=== PATIENT | male | born 1960 | race Caucasian/White ===

== ENCOUNTER 2016-09-10 20:47 | Observation (INO) | payer OTHER ==
[~2016-09-10] VITALS: Ht 172.7 cm; Wt 90.1 kg
[~2016-09-10 20:47] MED LIST: ASPI81TA28 PO; ATOR-22 PO; CLOP1TAB15 PO; FOLI1TAB7 PO; FRS/40 PO; HYG/25 PO; POTA20TA16 PO; PRED-301 PO; THIA100T13 PO; TPRSR/25 PO
[2016-09-10] MEDS ORDERED: METH500T37 PO (21:03)
[2016-09-10] MEDS ORDERED: MAGN400T6 PO (21:03)
[2016-09-10] MEDS ORDERED: ATOR-26 PO (21:03)
[2016-09-10] MEDS ORDERED: ASPIRIN 81 MG CHEW PO STA (21:51)
[2016-09-10] MEDS ORDERED: NITROGLYCERIN OINT 2% 1GM PACKET EXT STA (21:51)
[2016-09-10] MEDS ORDERED: ACETAMINOPHEN 500 MG TAB PO STA (21:51)
--- NOTE | 2016-09-10 21:55 | DIAGNOSTIC IMAGING REPORT ---
SINGLE VIEW CHEST CLINICAL HISTORY: Atypical chest pain. FINDINGS: An AP, portable, upright chest radiograph is compared to study dated 06/05/2016. Correlation is made with chest CT dated 05/14/2015. The examination is degraded by portable technique, large body habitus, and patient rotation. The patient is status post midline sternotomy. The heart is top normal in size and there is atherosclerotic calcification of the thoracic aorta. The pulmonary vasculature is noncongested. Chronic interstitial thickening and mild elevation of left hemidiaphragm are unchanged. No airspace consolidation or pleural effusion is seen. No pneumothorax is identified. The skeletal structures appear osteopenic. The bony thorax is grossly intact. Degenerative change and scoliosis are noted in the thoracic spine. IMPRESSION: No acute cardiopulmonary abnormality. Electronically signed by: Cayetano Ramos M.D. 09/10/2016 9:54 PM Dictated Date/Time: 09/10/2016 9:53 PM
[2016-09-10] MEDS ORDERED: NITROGLYCERIN OINT 2% 1GM PACKET ONE (21:58)
--- NOTE | 2016-09-10 21:58 | EMERGENCY ROOM VISIT NOTE ---
History Report prepared by Wilian: Fritz Melo Under the Supervision of: Dr. Rah Jhaveri M.D. First contact with patient: 20:52 Chief Complaint: CHEST PAIN Stated Complaint: CHEST PAIN Nursing Triage Summary: Patient arrived to [facility] via ALS from home. Patient states "I had pain in my left arm for most of the day today. About 3 hours ago, I developed pain in the left side of my chest. I have a CoreValve (aortic - replaced in 2015) and have had a CABG before. I have lupus and take lasix for fluid retention." Patient was given Aspirin 324mg PO and Nitro 3 tabs SL in route to the ED. Patient reports his pain is improving; initially 01/06, now 10/07. Patient reports a history of HTN and cirrhosis. History of Present Illness The patient is a 56 year old male who presents to the Emergency Room with complaints of chest pain that began today. The patient's pain has now resolved due to en ROUTE Nitroglycerin in EMS. The patient has a history of a cardiac bypass surgery and heart valve replacements. He was at his mother's playing a board game when his symptoms began. He called the EMS to be transported to the ED. He was also experiencing arm pain. He does not take Coumadin or Nitroglycerin regularly. He currently has a headache and left sided flank pain. He denies any other symptoms. Source of History: patient Onset: today Position: chest Symptom Intensity: minimal Quality: sharp Timing: resolved Associated Symptoms: + back pain, + headache Note: He denies all other symptoms. Review of Systems See HPI for pertinent positives & negatives. A total of 10 systems reviewed and were otherwise negative. Past Medical & Surgical Medical Problems: (1) Alcoholic liver damage (2) Appendectomy (3) Benign hypertension (4) Bronchitis (5) CAD (coronary artery disease) (6) Constricting chest pain often radiating down left arm (7) Contusion of right hip (8) Coronary artery bypass grafting (9) Hyperlipidemia (10) lupus (11) Lupus (12) Replacement of aortic valve Family History Patient reports no known family medical history. Social History Smoking Status: Former Smoker Alcohol Use: occasionally Drug Use: none Marital Status: single Housing Status: lives with family Occupation Status: unemployed, disabled Current/Historical Medications Scheduled Aspirin (Aspirin Ec), 81 MG PO QAM Chlorthalidone (Hygroton), 25 MG PO QAM Clopidogrel (Plavix), 75 MG PO QAM Furosemide (Lasix), 40 MG PO QAM Magnesium Oxide (Mag-Ox), 400 MG PO QAM Methocarbamol (Robaxin), 500 MG PO TID Metoprolol Succinate (Metoprolol Succinate ER), 25 MG PO QAM Potassium Ext Rel (Klor-Con), 20 MEQ PO BID Prednisone (Prednisone), 5 MG PO QAM Allergies Coded Allergies: Codeine (Verified Adverse Reaction, Mild, NERVOUS, 09/10/16) Physical Exam Vital Signs Date Time Temp Pulse Resp B/P Pulse Ox O2 Delivery O2 Flow Rate FiO2 09/10/16 23:50 76 16 120/81 97 Room Air 09/10/16 23:05 72 20 122/80 98 Room Air 09/10/16 22:32 73 18 122/70 94 Room Air 09/10/16 22:06 77 20 122/73 94 Room Air 09/10/16 21:18 80 09/10/16 20:50 93 Room Air 09/10/16 20:50 93 Room Air 09/10/16 20:50 37.0 86 20 132/77 93 Room Air Physical Exam GENERAL: Patient is a healthy-appearing well-nourished HEAD: Normocephalic atraumatic EYES: Ocular movements intact pupils equal and react to light OROPHARYNX mucous membranes are moist no exudates present no erythema or edema present NECK: Supple no nuchal rigidity CHEST: Good equal expansion LUNGS: Clear and equal to auscultation CARDIAC: Normal S1 and S2. 3/6 systolic murmur. ABDOMEN: Soft nontender no guarding BACK: No CVA tenderness EXTREMITIES: No pain upon palpation normal muscle strength in all groups no clubbing cyanosis or edema NEURO: Patient is following commands is answering questions appropriately. Alert and oriented x3 Cranial Nerves 2-12 grossly intact Medical Decision & Procedures ER Provider Diagnostic Interpretation: Radiology results as stated below per my review and radiologist interpretation: SINGLE VIEW CHEST CLINICAL HISTORY: Atypical chest pain. FINDINGS: An AP, portable, upright chest radiograph is compared to study dated 06/05/2016. Correlation is made with chest CT dated 05/14/2015. The examination is degraded by portable technique, large body habitus, and patient rotation. The patient is status post midline sternotomy. The heart is top normal in size and there is atherosclerotic calcification of the thoracic aorta. The pulmonary vasculature is noncongested. Chronic interstitial thickening and mild elevation of left hemidiaphragm are unchanged. No airspace consolidation or pleural effusion is seen. No pneumothorax is identified. The skeletal structures appear osteopenic. The bony thorax is grossly intact. Degenerative change and scoliosis are noted in the thoracic spine. IMPRESSION: No acute cardiopulmonary abnormality. Electronically signed by: Cayetano Ramos M.D. 09/10/2016 9:54 PM Dictated Date/Time: 09/10/2016 9:53 PM ULTRASOUND KIDNEYS AND BLADDER CLINICAL HISTORY: Left flank pain. COMPARISON STUDY: Abdominal CT dated 04/25/2014. TECHNIQUE: Real-time, grayscale, and color flow sonography of the kidneys and bladder is performed. Images are reviewed in the transverse and longitudinal planes. FINDINGS: Kidneys: The kidneys are normal in size and echotexture. The right kidney measures 11.2 x 5.3 x 5.1 cm and the left kidney measures 11.5 x 6.9 x 4.6 cm. There is no hydronephrosis. No shadowing renal calculi are identified. There is no sonographic evidence of contour deforming renal mass lesion. No perinephric fluid is identified. Bladder: The bladder is normal in appearance. Bilateral ureteral jets were seen. IMPRESSION: Unremarkable sonographic assessment of the kidneys and bladder. Electronically signed by: Cayetano Ramos M.D. 09/10/2016 10:57 PM Dictated Date/Time: 09/10/2016 10:56 PM Laboratory Results 09/10/16 20:15 09/10/16 20:15 Test 09/10/16 20:15 Red Blood Count 4.65 M/uL (4.7-6.1) Mean Corpuscular Volume 85.6 fL (80-100) Mean Corpuscular Hemoglobin 30.5 pg (25-34) Mean Corpuscular Hemoglobin Concent 35.7 g/dl (32-36) RDW Standard Deviation 38.4 fL (36.4-46.3) RDW Coefficient of Variation 12.3 % (11.5-14.5) Mean Platelet Volume 12.8 fL (7.4-10.4) Prothrombin Time 11.0 SECONDS (9.0-12.0) Prothromb Time International Ratio 1.0 (0.9-1.1) Activated Partial Thromboplast Time 25.5 SECONDS (21.0-31.0) Partial Thromboplastin Ratio 1.0 Anion Gap 9.0 mmol/L (3-11) Est Creatinine Clear Calc Drug Dose 103.3 ml/min Estimated GFR () 111.6 Estimated GFR (Non- 96.3 BUN/Creatinine Ratio 21.0 (10-20) Calcium Level 8.7 mg/dl (8.5-10.1) Total Bilirubin 0.7 mg/dl (0.2-1) Aspartate Amino Transf (AST/SGOT) 61 U/L (15-37) Alanine Aminotransferase (ALT/SGPT) 67 U/L (12-78) Alkaline Phosphatase 114 U/L (45-117) Total Creatine Kinase 92 U/L (39-308) Creatine Kinase MB 2.4 ng/ml (0.5-3.6) Creatine Kinase MB Ratio 2.6 (0-3.0) Total Protein 8.3 gm/dl (6.4-8.2) Albumin 3.8 gm/dl (3.4-5.0) Globulin 4.5 gm/dl (2.5-4.0) Albumin/Globulin Ratio 0.8 (0.9-2) Chemistry Specimen Hemolysis Labs reviewed by ED physician. Medications Administered Medications (Trade) Dose Ordered Sig/Delfino Route Start Time Stop Time Status Last Admin Dose Admin Nitroglycerin (Nitroglycerin 2% Oint) 1 inch NOW STAT EXT 09/10/16 21:51 09/10/16 21:52 DC 09/10/16 22:03 1 INCH Acetaminophen (Tylenol Tab) 1,000 mg NOW STAT PO 09/10/16 21:51 09/10/16 21:52 DC 09/10/16 22:03 1,000 MG Potassium Chloride 10 meq 10 meq NOW STAT IV 09/10/16 22:18 09/10/16 22:19 DC 09/10/16 23:09 10 MEQ Potassium Chloride/Prmx (Kcl 10 Meq / Wtr/Premixed Water) 100 ml @ 100 mls/hr NOW STAT IV 09/10/16 22:18 09/10/16 23:17 DC 09/11/16 00:03 100 MLS/HR Potassium Chloride (Klor-Con M10) 40 meq NOW STAT PO 09/10/16 22:18 09/10/16 22:20 DC 09/10/16 23:09 40 MEQ Potassium Chloride (Klor-Con M10) 40 meq NOW STAT PO 09/10/16 22:18 09/10/16 22:20 DC 09/10/16 23:10 40 MEQ Ondansetron HCl (Zofran Inj) 4 mg NOW STAT IV 09/10/16 22:18 09/10/16 22:20 DC 09/10/16 23:09 4 MG Morphine Sulfate (MoRPHine SULFATE INJ) 8 mg NOW STAT IV 09/10/16 23:42 09/10/16 23:44 DC 09/10/16 23:48 8 MG ECG Indication: chest pain Rate (beats per minute): 85 Rhythm: normal sinus Findings: no acute ischemic change, prolonged QT, no ectopy Comparison ECG Date: Change: Second ECG in ED: NSR 72 prolonged QT, no ectopy, no acute ischemic changes. ED Course 2051: Past medical records reviewed. The patient was evaluated in room C3. A complete history and physical examination was performed. 2151: Acetaminophen 1000 mg PO, Nitroglycerin 1 inch EXT, Aspirin 324 mg PO 215: Nitroglycerin 1 inch .ROUTE 2218: Zofran Inj 4 mg IV, Potassium Chloride 40 meq PO, Potassium Chloride 40 meq PO, Potassium Chloride 10 meq/ Prmx 100 ml @ 100 mls/hr, Potassium Chloride 10 meq IV 2252: Potassium Chloride 20 meq IV, Potassium Chloride 80 meq .ROUTE 2340: Upon reexamination the patient is resting. I discussed results and treatment plan with the patient. He verbalizes agreement and understanding. I spoke with Dr. Cosme from the [facility] Hospitalist Service. The patient will be evaluated for further management. Medical Decision Differential diagnosis: Etiologies such as cardiac ischemia, aortic dissection, pulmonary embolism, pneumonia, pneumothorax, musculoskeletal, infections, pericarditis, myocarditis , esophageal rupture, gastrointestinal, as well as others were entertained. This is a 56-year-old male who presents emergency department complaining of chest pain. The patient's chest pain was relieved by nitroglycerin. The patient has a exceedingly low potassium and is on Lasix for the potassium. He has a history of CABG. The patient's potassium was repleted in the emergency department. He was sent for an ultrasound of his kidneys as the patient has a history of lupus and is concerned about kidneys along with left-sided flank pain. Ultrasound is normal. I did discuss the case with the hospitalist service who agreed to admit the patient for cardiac rule out. Patient was in agreement with the treatment plan. Consults Time Called: 2329 Consulting Physician: Dr. Ba AGUIRRE Hospitalist Returned Call: [phone] He will be evaluating the patient for further management. Impression Primary Impression: Precordial chest pain Scribe Attestation The scribe's documentation has been prepared under my direction and personally reviewed by me in its entirety. I confirm that the note above accurately reflects all work, treatment, procedures, and medical decision making performed by me. Departure Information Dispostion Being Evaluated By Hospitalist Prescriptions Potassium Ext Rel (Klor-Con) 20 Meq Tabcr 20 MEQ PO BID, #60 2 Refills Prov: Urban Moody MD 09/11/16 Referrals Sin Boudreaux M.D. (PCP) Patient Instructions My [facility]
[2016-09-10 22:14] LABS: CALCIUM 8.7 mg/dl (8.5-10.1); CREATININE 0.86 mg/dl (0.60-1.40); POTASSIUM 2.9 mmol/L (3.5-5.1)
[2016-09-10 22:17] LABS: ALB/GLOB RATIO 0.8 (0.9-2); CKMB/CK RATIO 2.6 (0-3.0)
[2016-09-10] MEDS ORDERED: POTASSIUM CHLORIDE 10 MEQ TABCR PO STA ×2 (22:18)
[2016-09-10] MEDS ORDERED: POTASSIUM CHLORIDE 10 MEQ / 100ML WTR IV STA (22:18)
[2016-09-10] MEDS ORDERED: POTASSIUM CHLR 10 MEQ / WTR 10 MEQ in PREMIXED WATER 100 ML IV STA (22:18)
[2016-09-10] MEDS ORDERED: ONDANSETRON INJ 2 MG/ML 2 ML VIAL IV STA (22:18)
[2016-09-10 22:39] LABS: HEMATOCRIT 39.8 % (42-52); MEAN CELL VOLUME 85.6 fL (80-100); MEAN CORPUSCULAR HEMOGLOBIN 30.5 pg (25-34); MEAN CORPUSCULAR HGB CONC 35.7 g/dl (32-36); MEAN PLATELET VOLUME 12.8 fL (7.4-10.4); PLATELET COUNT 130 K/uL (130-400); RED BLOOD COUNT 4.65 M/uL (4.7-6.1); WHITE BLOOD COUNT 6.49 K/uL (4.8-10.8)
[2016-09-10] MEDS ORDERED: POTASSIUM CHLORIDE 10 MEQ TABCR ONE (22:52)
[2016-09-10] MEDS ORDERED: POTASSIUM CHLORIDE 10 MEQ / 100ML WTR IV ONE (22:52)
--- NOTE | 2016-09-10 22:59 | DIAGNOSTIC IMAGING REPORT ---
ULTRASOUND KIDNEYS AND BLADDER CLINICAL HISTORY: Left flank pain. COMPARISON STUDY: Abdominal CT dated 04/25/2014. TECHNIQUE: Real-time, grayscale, and color flow sonography of the kidneys and bladder is performed. Images are reviewed in the transverse and longitudinal planes. FINDINGS: Kidneys: The kidneys are normal in size and echotexture. The right kidney measures 11.2 x 5.3 x 5.1 cm and the left kidney measures 11.5 x 6.9 x 4.6 cm. There is no hydronephrosis. No shadowing renal calculi are identified. There is no sonographic evidence of contour deforming renal mass lesion. No perinephric fluid is identified. Bladder: The bladder is normal in appearance. Bilateral ureteral jets were seen. IMPRESSION: Unremarkable sonographic assessment of the kidneys and bladder. Electronically signed by: Cayetano Ramos M.D. 09/10/2016 10:57 PM Dictated Date/Time: 09/10/2016 10:56 PM
[2016-09-10] MEDS ORDERED: MoRPHine SULFATE 10 MG/ML CARP/VIAL IV STA (23:42)
[2016-09-11] VITALS (9 sets, daily range): BP systolic 115–129; BP diastolic 74–83; PULSE 59–73; TEMP 36.4–36.8; O2SAT 92–98; Ht 172.7 cm; Wt 90.1 kg
[2016-09-11] MEDS ORDERED: ACETAMINOPHEN 325 MG TAB PO PRN
[2016-09-11] MEDS ORDERED: POLYETHYLENE (MIRALAX) 17 GM PACK PO PRN
[2016-09-11] MEDS ORDERED: MoRPHine SULFATE 2 MG/ML CARP IV PRN
[2016-09-11] MEDS ORDERED: ALUMINUM/MAGNESIUM/SIMETH (MAALOX MAX) 30 ML UDC PO PRN
[2016-09-11] MEDS ORDERED: ONDANSETRON INJ 2 MG/ML 2 ML VIAL IV PRN
[2016-09-11] MEDS ORDERED: MAGNESIUM HYDROXIDE SUSP 30 ML UDC PO PRN
[2016-09-11] MEDS ORDERED: NITROGLYCERIN 0.4 MG SL PER TAB CHARGE SL PRN
[2016-09-11] MEDS ORDERED: IV FLUIDS COMPLETED PRN (00:15)
[2016-09-11] MEDS ORDERED: MAGNESIUM SULFATE 1GM / D5W 1 GM in PREMIXED IN D5W 100 ML IV SCH (01:30)
--- NOTE | 2016-09-11 01:53 | HISTORY & PHYSICAL EXAMINATION ---
DATE OF ADMISSION: 09/11/2016 REASON FOR ADMISSION: Chest pain. HISTORY OF PRESENT ILLNESS: This is a 56-year-old male with a medical history of diffuse severe CAD, SLE, aortic valve replacement with revision. The patient developed central chest pain earlier in the day which radiated to his left arm and was followed by a generalized headache. He denies any nausea, vomiting, diaphoresis, lightheadedness or fevers. He denies any shortness of breath. On arrival to the hospital, he was administered several doses of morphine and NTG which eventually served to relieve his chest pain. Initial EKG is unchanged, initial troponin is negative. The patient did have cardiac catheterization in 02/2016, which showed diffuse severe [place] artery disease. He also had severe aortic stenosis of a bioprosthesis at that time. In 05/2016, he had a CoreValve revision of the bioprosthesis. PAST MEDICAL HISTORY: 1. SLE. He takes 5 mg of prednisone daily only for this. 2. CAD. Two-vessel bypass in 2008, cardiac catheterization in 02/2016 with diffuse severe disease. 3. Aortic valve replacement in 2009. The patient developed severe stenosis in the bioprosthesis and had a CoreValve replacement procedure in 05/2016. 4. Previous history of alcoholic liver disease which the patient denies. 5. Hyperlipidemia. 6. Hypertension. 7. History of rib fractures. 8. Chronic gait instability. 9. History of hydrocephalus as a child. 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 11. Grade 2 diastolic dysfunction. An echocardiogram in 2015 showed an ejection fraction of 60% with no wall motion abnormalities and severe aortic stenosis. CURRENT MEDICATIONS: Include the followin. Chlorthalidone 25 mg a.m. 2. Aspirin 81 mg a.m. 3. Plavix 75 mg a.m. 4. Lasix 40 mg a.m. 5. Magnesium oxide 400 mg a.m. 6. Robaxin 500 mg t.i.d. 7. Toprol-XL 25 mg a.m. 8. Potassium chloride 20 mEq a.m. 9. Prednisone 5 mg a.m. SOCIAL HISTORY: The patient does not smoke cigarettes. He states he drinks in moderation. Previous records indicate excess use, the patient denies this, and we cannot confirm otherwise. FAMILY HISTORY: Positive for CAD and hypertension. REVIEW OF SYSTEMS: A 14-point review of systems was performed and is negative aside from what is listed in the HPI. PHYSICAL EXAMINATION: VITAL SIGNS: Blood pressure is 120/81, heart rate 76, respirations 20, temperature 37, satting at 97% on room air. GENERAL: This is a slightly overweight middle-aged male. He is awake, alert, oriented x3, in no distress. HEAD AND NECK: No JVD, bruits, thrush or icterus. HEART: S1, 2. There is a loud systolic murmur. LUNGS: Clear to auscultation bilaterally. ABDOMEN: Nontender, nondistended. Bowel sounds present. EXTREMITIES: No clubbing, cyanosis or edema, with positive pulses. NEUROLOGIC: He is ambulatory, maintains his coordination, does not exhibit any focal deficits. SKIN: Negative for rashes or ulcers. LABORATORY DATA: WBC 6.4, hemoglobin 14.2, platelets 130. Sodium 138, potassium 2.9, chloride 94, CO2 of 35, BUN 18, creatinine 0.86 and glucose 89. INR is 1. EKG: Sinus rhythm, normal axis. There is borderline QT prolongation and no significant morphological change from previous. ASSESSMENT AND PLAN: This is a 56-year-old male with a history of severe coronary artery disease, aortic valve replacement with bioprosthesis, systemic lupus erythematosus, and grade 2 diastolic dysfunction. He presents with chest pain. Initial EKG is unchanged, initial troponin is negative. The patient does exhibit hypokalemia on initial labs. He will be admitted with the followin. Chest pain. We will admit to telemetry, obtain serial enzymes. Continue his aspirin, metoprolol and Plavix. PRESUMABLY, HE IS STATIN INTOLERANT as this does not feature on his medication list. We will treat chest pain with nitroglycerin or morphine p.r.n. If his troponin does increase, we will provide full dose anticoagulation and consult his cafeteria cook. 2. Hypokalemia. Potassium was replaced in the ER. We will provide magnesium in addition. 3. Systemic lupus erythematosus. He will continue 5 mg of prednisone daily. 4. Diastolic dysfunction. The patient will continue his daily Lasix. We have held chlorthalidone pending a.m. reevaluation as he is slightly dehydrated and has a low potassium. 5. Hypertension. Continue metoprolol. 6. Possible history of alcoholic liver disease. LFTs are improved compared to baseline. Total time for this admit including chart review, discussion with the ER physician, review of labs, imaging, EKG and extensive previous records 45 minutes. MTDD
[2016-09-11] MEDS: HEPARIN SOD 5000 UNIT/0.5 ML CARP SQ SCH ×2 (06:45→14:52)
[2016-09-11 08:19] LABS: POTASSIUM 3.2 mmol/L (3.5-5.1)
[2016-09-11] MEDS: METHOCARBAMOL 500 MG TAB PO SCH ×2 (08:30→14:51)
[2016-09-11] MEDS ORDERED: METOPROLOL SUCC 25MG EXT REL TAB PO SCH (09:00)
[2016-09-11] MEDS ORDERED: POTASSIUM CHLORIDE 20 MEQ TABCR PO SCH (09:00)
[2016-09-11] MEDS ORDERED: ASPIRIN 81 MG ECTAB PO SCH (09:00)
[2016-09-11] MEDS ORDERED: FUROSEMIDE 40 MG TAB PO SCH (09:00)
[2016-09-11] MEDS ORDERED: CLOPIDOGREL BISULFATE 75 MG TAB PO SCH (09:00)
[2016-09-11] MEDS ORDERED: MAGNESIUM OXIDE 400 MG TAB PO SCH (09:00)
[2016-09-11] MEDS ORDERED: POTASSIUM CHLORIDE 10 MEQ TABCR PO ONE (09:30)
--- NOTE | 2016-09-11 10:30 | Cardiology Consultation ---
Cardiology Consultation Date of Consultation: Sep 11, 2016. Attending Physician: Dr. Frida Amado Pt evaluation today including: conversation w/ patient, physical exam, chart review, lab review History of Present Illness Patient awoke with a headache and arm heaviness yesterday. Both symptoms were new but patient ignored them through out the day. He describes the headache as throbbing on the right parietal region, without photosensitivity or aura. The arm heaviness was not associated with numbness or tingling, nor did he feel that the pain was radiating down from the chest and patient was able to continue about his day, as per normal. He went to visit his mom, and walked the 2min back. He was able to climb the 1 flight of stairs up to his apartment without issue. It was only upon sitting down that he realized that he was feeling a chest pressure located centrally. He denies radiation into neck or back, but the left arm heaviness persisted. There was no associated nausea, vomiting or diaphoresis. Patient claims that there was some shortness of breath but says this is a long-standing symptom, which he believes is secondary to his lupus. He denies changes in symptoms with change in position or movement, and did not try any medication for relief at home. He waited approximately 2 hours before seeking medical attention. In the ED, his symptoms improved with morphine and NGT. Patient says he recovered from a cold a week ago, but no recent URI symptoms or fever. He says he is compliant with all of his medication and does not smoke and hasn't drank alcohol in a year. At baseline, patient admits that he does not exert himself much. On flat ground , he is able to ambulate independently without significant shortness of breath or any chest pain symptoms. Patient denies claudication, syncope or presyncopal episodes. He says he does have occasional episodes of chest pain, but these are limited in severity and self-resolve in minutes. He describes both orthopnea and PND, which are long standing and less of an issue when he sleeps angulated on his recliner. He does not use home oxygen. Family History Patient reports no known family medical history. CAD and HTN Social History Smoking Status: Former Smoker History of Alcohol Use: Yes Review of Systems Constitutional: No chills, No fever, No weakness Respiratory: + dyspnea on exertion, + shortness of breath, No cough, No dyspnea at rest Cardiac: + edema, + orthopnea, No chest pain, No palpitations Abdomen: + constipation, No GI bleeding, No nausea, No pain, No vomiting Male : No dysuria All Other Systems: Reviewed and Negative Allergies Coded Allergies: Codeine (Verified Adverse Reaction, Mild, NERVOUS, 09/10/16) Medications Current Inpatient Medications Medications (Trade) Dose Ordered Sig/Delfino Route Start Time Stop Time Status Last Admin Dose Admin Heparin Sodium (Porcine) (Heparin Sq 5000 Unit/0.5ml) 5,000 unit Q8 SQ 09/11/16 06:00 10/11/16 05:59 09/11/16 06:45 5,000 UNIT Acetaminophen (Tylenol Tab) 650 mg Q4H PRN PO 09/11/16 00:00 10/11/16 00:00 Al Hydrox/Mg Hydrox/Simethicone (Maalox Max Susp) 15 ml Q4H PRN PO 09/11/16 00:00 10/11/16 00:00 Magnesium Hydroxide (Milk Of Magnesia Susp) 30 ml Q12H PRN PO 09/11/16 00:00 10/11/16 00:00 Ondansetron HCl (Zofran Inj) 4 mg Q6H PRN IV 09/11/16 00:00 10/11/16 00:00 Nitroglycerin (Nitrostat Tab) 0.4 mg UD PRN SL 09/11/16 00:00 10/11/16 00:00 Morphine Sulfate (MoRPHine SULFATE INJ) 2 mg Q30M PRN IV 09/11/16 00:00 09/25/16 00:00 Polyethylene (Miralax Powder Packet) 17 gm DAILY PRN PO 09/11/16 00:00 10/11/16 00:00 Aspirin (Ecotrin Tab) 81 mg QAM PO 09/11/16 09:00 10/11/16 08:59 09/11/16 08:28 81 MG Clopidogrel Bisulfate (plAVix TAB) 75 mg QAM PO 09/11/16 09:00 10/11/16 08:59 09/11/16 08:30 75 MG Furosemide (Lasix Tab) 40 mg QAM PO 09/11/16 09:00 10/11/16 08:59 09/11/16 08:29 40 MG Magnesium Oxide (Mag-Ox Tab) 400 mg QAM PO 09/11/16 09:00 10/11/16 08:59 09/11/16 08:30 400 MG Methocarbamol (Robaxin Tab) 500 mg TID PO 09/11/16 09:00 10/11/16 08:59 09/11/16 08:30 500 MG Metoprolol Succinate (Toprol Xl Tab) 25 mg QAM PO 09/11/16 09:00 10/11/16 08:59 09/11/16 08:31 25 MG Potassium Chloride (Klor-Con Tab) 20 meq QAM PO 09/11/16 09:00 10/11/16 08:59 09/11/16 08:29 20 MEQ Prednisone (PredniSONE TAB) 5 mg QAM PO 09/11/16 09:00 10/11/16 08:59 09/11/16 08:30 5 MG Miscellaneous (Iv Fluids Completed) 1 ea PRN PRN N/A 09/11/16 00:15 09/11/17 00:14 Physical Exam Vital Signs Past 12 Hours Date Time Temp Pulse Resp B/P Pulse Ox O2 Delivery O2 Flow Rate FiO2 09/11/16 07:36 36.4 59 18 129/77 98 Room Air 09/11/16 04:08 36.7 70 18 124/83 94 Nasal Cannula 2.0 09/11/16 04:00 94 Nasal Cannula 2.0 09/11/16 01:36 36.8 73 18 128/77 93 Nasal Cannula 2.0 09/11/16 00:34 75 20 108/69 95 Room Air 09/10/16 23:50 76 16 120/81 97 Room Air 09/10/16 23:05 72 20 122/80 98 Room Air 09/10/16 22:32 73 18 122/70 94 Room Air 09/10/16 22:06 77 20 122/73 94 Room Air 09/10/16 21:18 80 Constitutional: General Apperance: heathly-appearing, well-nourished, well-developed Level of Distress: NAD Head: normocephalic, atraumatic ENMT: pharynx normal Neck: supple, FROM Lungs: Respiratory effort: no dyspnea, good air movement Auscultation: breath sounds normal, CTA except as noted, no wheezing, no rales/crackles Cardiovascular: Heart Auscultation: normal S1, normal S2, murmur (crescendo-decrescendo harsh systolic murmur), pertinent finding (JVP ~7-8mmH20) Peripheral Pulses: Bruits: none appreciated Carotid Pulse: normal on the left, normal on the right Radial Pulse: normal on the left, normal on the right Dorsalis Pedis Pulse: decreased on the left, decreased on the right Abdomen: Inspection & Palpation: soft, non-distended, no tenderness, guarding & rebound, no masses Extremities: no cyanosis, no varicosities, no ulcers, edema (Trace) Data Laboratory Results: Last 24 Hours Test 09/10/16 20:15 09/11/16 00:45 09/11/16 07:05 White Blood Count 6.49 K/uL Red Blood Count 4.65 M/uL Hemoglobin 14.2 g/dL Hematocrit 39.8 % Mean Corpuscular Volume 85.6 fL Mean Corpuscular Hemoglobin 30.5 pg Mean Corpuscular Hemoglobin Concent 35.7 g/dl RDW Standard Deviation 38.4 fL RDW Coefficient of Variation 12.3 % Platelet Count 130 K/uL Mean Platelet Volume 12.8 fL Prothrombin Time 11.0 SECONDS Prothromb Time International Ratio 1.0 Activated Partial Thromboplast Time 25.5 SECONDS Partial Thromboplastin Ratio 1.0 Sodium Level 138 mmol/L Potassium Level 2.9 mmol/L 3.2 mmol/L Chloride Level 94 mmol/L Carbon Dioxide Level 35 mmol/L Anion Gap 9.0 mmol/L Blood Urea Nitrogen 18 mg/dl Creatinine 0.86 mg/dl Est Creatinine Clear Calc Drug Dose 103.3 ml/min Estimated GFR () 111.6 Estimated GFR (Non- 96.3 BUN/Creatinine Ratio 21.0 Random Glucose 89 mg/dl Calcium Level 8.7 mg/dl Total Bilirubin 0.7 mg/dl Aspartate Amino Transf (AST/SGOT) 61 U/L Alanine Aminotransferase (ALT/SGPT) 67 U/L Alkaline Phosphatase 114 U/L Total Creatine Kinase 92 U/L Creatine Kinase MB 2.4 ng/ml Creatine Kinase MB Ratio 2.6 Troponin I 0.016 ng/ml 0.029 ng/ml 0.036 ng/ml Total Protein 8.3 gm/dl Albumin 3.8 gm/dl Globulin 4.5 gm/dl Albumin/Globulin Ratio 0.8 Chemistry Specimen Hemolysis Magnesium Level 2.0 mg/dl Imaging: EKG: Telemetry reviewed: Assessment & Plan 56 year old male with complex medical history with cardiac history significant for 2 vessel bypass in 2008, aortic valve replacement with bioprosthesis in 2009 , cardiac catheterization showing diffuse severe vessel disease in 02/2016, bioprosthesis stenosis s/p TAVR in 05/2016 admitted for chest pain rule out. ACS - Three sets of troponin within normal limits. - Continue aspirin 81mg qAM, clopidogrel 75mg qAM in view of recent TAVR procedure - Plan to perform echocardiography to assess cardiac and aortic valve function Dystolic dysfunction - Hydration status adequate, euvolemic - Continue furosemide 40mg qAM Hypertension - Blood pressures in acceptable range since admission - Continue home meds: chlorthalidone 25mg qAM, metoprolol succinate 25mg qAM, furosemide 40mg qAM Hyperlipidemia - Patient not on statin in hospital but claims he is on atorvastatin at home - As per outside records, atorvastatin 80mg restarted. Dispo - At this point, patient is stable with resolution of cardiac symptoms. If echo is within normal limits and patient remains asymptomatic, he would benefit from outpatient follow up in 4 weeks with potential nuclear imaging and/or stress testing in the future if recurrence of symptoms/ jail risk stratification warranted. Thank you for allowing us to participate in the care of this patient. We will continue to follow through out the admission. DR. AMADO ADDENDUM; Patient well known to me from outpatient setting and prior admissions. Was seen with resident and plan of care discussed. Agree with assessment as outlined by Dr. Dodson. Prior cardiac cath in february showed patent bypass grafts. Low suspicion that patient's current chest pain represents ACS or new high risk disease. Echo repeated to assess new Corevalve function and filling pressures. Valve well functioning without significant perivalvular leak. From a cardiac standpoint OK for discharge with plan for cardiology follow-up in 4 weeks. If recurrent pain will consider adding nitrate as an outpatient.
[2016-09-11] MEDS ORDERED: POTASSIUM CHLORIDE 20 MEQ TABCR PO STA (11:47)
--- NOTE | 2016-09-11 11:49 | Hospitalist Progress Note ---
Hospitalist Progress Note Date of Service Sep 11, 2016. (Aziza Victoria PA-C) Subjective Pt evaluation today including: conversation w/ patient, physical exam, chart review, lab review, review of studies, conversation w/ sales enablement consultant, review of inpatient medication list The patient currently denies any chest pain. His pain stopped after receiving nitroglycerin in the emergency department. Described it as a pressure-like sensation. Denies any cough or shortness of breath. No fever or chills. Denies heart palpitations or dizziness. Additional Comments: 6 system review negative. Please see pertinent positives in the history of present illness section. (Aziza Victoria PA-C) Objective Vital Signs Date Time Temp Pulse Resp B/P Pulse Ox O2 Delivery O2 Flow Rate FiO2 09/11/16 11:00 36.5 67 18 125/75 92 Room Air 09/11/16 08:00 95 Nasal Cannula 2.0 09/11/16 07:36 36.4 59 18 129/77 98 Room Air 09/11/16 04:08 36.7 70 18 124/83 94 Nasal Cannula 2.0 09/11/16 04:00 94 Nasal Cannula 2.0 09/11/16 01:36 36.8 73 18 128/77 93 Nasal Cannula 2.0 09/11/16 00:34 75 20 108/69 95 Room Air 09/10/16 23:50 76 16 120/81 97 Room Air 09/10/16 23:05 72 20 122/80 98 Room Air 09/10/16 22:32 73 18 122/70 94 Room Air 09/10/16 22:06 77 20 122/73 94 Room Air 09/10/16 21:18 80 09/10/16 20:50 93 Room Air 09/10/16 20:50 93 Room Air 09/10/16 20:50 37.0 86 20 132/77 93 Room Air (Aziza Victoria PA-C) Physical Exam General Appearance: no apparent distress Eyes: EOMI Neck: no JVD Respiratory/Chest: lungs clear Cardiovascular: regular rate, rhythm, + pertinent finding (gallop noted.) Abdomen: normal bowel sounds, non tender, soft Extremities: + pertinent finding (+1 nonpitting edema noted in the lower extremities without any erythema, tenderness or warmth appreciated.) Neurologic/Psychiatric: no motor/sensory deficits, oriented x 3 Skin: warm/dry (Aziza Victoria PA-C) Laboratory Results Last 24 Hours Test 09/10/16 20:15 09/11/16 00:45 09/11/16 07:05 White Blood Count 6.49 K/uL Red Blood Count 4.65 M/uL Hemoglobin 14.2 g/dL Hematocrit 39.8 % Mean Corpuscular Volume 85.6 fL Mean Corpuscular Hemoglobin 30.5 pg Mean Corpuscular Hemoglobin Concent 35.7 g/dl RDW Standard Deviation 38.4 fL RDW Coefficient of Variation 12.3 % Platelet Count 130 K/uL Mean Platelet Volume 12.8 fL Prothrombin Time 11.0 SECONDS Prothromb Time International Ratio 1.0 Activated Partial Thromboplast Time 25.5 SECONDS Partial Thromboplastin Ratio 1.0 Sodium Level 138 mmol/L Potassium Level 2.9 mmol/L 3.2 mmol/L Chloride Level 94 mmol/L Carbon Dioxide Level 35 mmol/L Anion Gap 9.0 mmol/L Blood Urea Nitrogen 18 mg/dl Creatinine 0.86 mg/dl Est Creatinine Clear Calc Drug Dose 103.3 ml/min Estimated GFR () 111.6 Estimated GFR (Non- 96.3 BUN/Creatinine Ratio 21.0 Random Glucose 89 mg/dl Calcium Level 8.7 mg/dl Total Bilirubin 0.7 mg/dl Aspartate Amino Transf (AST/SGOT) 61 U/L Alanine Aminotransferase (ALT/SGPT) 67 U/L Alkaline Phosphatase 114 U/L Total Creatine Kinase 92 U/L Creatine Kinase MB 2.4 ng/ml Creatine Kinase MB Ratio 2.6 Troponin I 0.016 ng/ml 0.029 ng/ml 0.036 ng/ml Total Protein 8.3 gm/dl Albumin 3.8 gm/dl Globulin 4.5 gm/dl Albumin/Globulin Ratio 0.8 Chemistry Specimen Hemolysis Magnesium Level 2.0 mg/dl (Aziza Victoria PA-C) Assessment and Plan 56-year-old male with a significant cardiac history, coronary artery disease, AVR status post AVR revision 06/14 presents to the emergency department with chest pressure. Now pain-free. Chest pain -Continue telemetry monitoring -Trend cardiac enzymes -Cardiology consult appreciated -Obtain echo -Repeat EKG Coronary artery disease if and noted to be severe on cardiac cath 03/15 -Continue medical management with aspirin 81 mg, Plavix 75 mg and metoprolol succinate 25 mg daily -Atorvastatin 80 mg daily restarted Diastolic dysfunction-no decompensation noted -Continue home dose of chlorthalidone and Lasix Hypokalemia-repeat potassium 3.2 -Given additional KCl po 60 mEq now SLE -Continue home dose of redness and 5 mg in the morning Cirrhosis-? Secondary to EtOH use. Patient denies -Stable DVT prophylaxis -Heparin 5000 units TID -TEDS, SCDs CODE STATUS -LEVEL I FULL CODE (Aziza Victoria, PA-C) Attending Attestation: pt seen/examined, chart reviewed, care plan d/w ANA Victoria. I agree w/ the valencia components of her documentation. I saw the patient after he had his echo; he was threatening to leave AMA if he "didn't get his test results fast." he denied any chest pain or sob during my visit (no chest pain since admission) tele stable/normal overnight VSS gen - agitated but NAD neck - no JVD heart - RRR, s1, s2, s4 vs opening snap, 3/6 systolic murmur heard all over chest lungs - CTA b/l abd - soft, NT ext - trace edema, pulses 2+ b/l Jazzy neg x 3 sets K 3.2 this am mag normal EKG - no ST changes, NSR; QTc prolonged A/P: Chest pain in patient with known, severe CAD. AVR in the past with revision of such in late 2016. Hypokalemia. QTc prolongation likely due to low K. Appreciate cardiology consult. Await echo. Replace K. Needs K supplementation at d/c due to double diuretic use at home. I highly encouraged patient NOT to sign out AMA prior to echo results returning. Enrique RIZVI MD (Urban Rizvi MD)
--- NOTE | 2016-09-11 17:41 | ECHOCARDIOGRAM REPORT ---
*NOTICE TO RECEIVING REPUBLICAN AGENCY This information is strictly Confidential and protected under [place] law. [place] law prohibits you from making any further disclosure of this information unless further disclosure is expressly permitted by the written consent of the person to whom it pertains or is authorized by law. A general authorization for the release of medical or other information is not sufficient for this purpose. Hospital accepts no responsibility if the information is made available to any other person, INCLUDING THE PATIENT. Interpretation Summary * Name: EILEEN TOBAR Study Date: 09/11/2016 11:39 AM BP: 125/75 mmHg * Patient Location: C.2T\S\S230\S\1 HR: 67 * : 1960 (M/d/yyyy) Gender: Male Height: 68 in * Age: 56 yrs Ethnicity: CA Weight: 198 lb * Ordering Physician: Maggie Dodson. * Performed By: Zina Murphy RDCS * * Reason For Study: Chest pain * BSA: 2.0 m2 * -- Conclusions -- * 1. Normal LV size. Mild concentric LVH * 2. Normal LV systolic function. LVEF 60-65%. No regional wall motion abnormalities. * 3. RV not well visualized. Borderline RV dysfunction. * 4. Post TAVR (Corevalve) with normal expected transvalvular gradients. No significant paravalvular leak. * 5. Severe mitral annular calcification. Mild mitral stenosis. Trace mitral regurgitation. * 6. Grade I diastolic dysfunction. * 7. Compared with prior study on 03/02/2016: Well-functioning TAVR is new. Procedure Details * A complete two-dimensional transthoracic echocardiogram was performed (2D, M-mode, Doppler and color flow Doppler). Left Ventricle * The left ventricle is grossly normal size. * There is mild concentric left ventricular hypertrophy. * Ejection Fraction = 60-65%. * No regional wall motion abnormalities noted. Right Ventricle * The right ventricle is not well visualized. * The right ventricular systolic function is mildly reduced. Atria * The left atrium is severely dilated. * The right atrium is mildly dilated. * There is no evidence of atrial septal defect, but resolution does not allow assessment for a patent foramen ovale. Mitral Valve * There is severe mitral annular calcification. * There is mild mitral stenosis. * There is trace mitral regurgitation. Tricuspid Valve * The tricuspid valve is not well visualized, but is grossly normal. * There is no tricuspid stenosis. * Significant tricuspid regurgitation is absent. Aortic Valve * There is a bioprosthetic aortic valve. * Post TAVR (Corevalve) with normal expected transvalvular gradients. No significant paravalvular regurgitation. Pulmonic Valve * The pulmonary valve is not well seen, but the Doppler examination is normal without significant regurgitation or stenosis. Great Vessels * The aortic root and proximal ascending aorta are normal sized. Pericardium/Pleural * There is no pericardial effusion. Great Vessels * Normal inferior vena cava size and collapsability with sniff indicates a normal right atrial pressure of 3 mmHg Left Ventricular Diastolic Function * Grade I diastolic dysfunction, (abnormal relaxation pattern). MMode 2D Measurements and Calculations IVSd 1.2 cm LVIDd 3.7 cm LVIDs 2.3 cm LVPWd 1.3 cm IVS/LVPW 0.90 FS 38.0 % EDV(Teich) 56.7 ml ESV(Teich) 17.5 ml EF(Teich) 69.1 % EDV(cubed) 49.1 ml ESV(cubed) 11.7 ml EF(cubed) 76.2 % LV mass(C)d 153.1 grams LV mass(C)dI 75.2 grams/m\S\2 SV(Teich) 39.2 ml SI(Teich) 19.3 ml/m\S\2 SV(cubed) 37.4 ml SI(cubed) 18.4 ml/m\S\2 asc Aorta Diam 3.2 cm LVAd ap4 20.7 cm\S\2 LVLd ap4 7.3 cm EDV(MOD-sp4) 49.0 ml EDV(sp4-el) 50.1 ml LVAs ap4 12.3 cm\S\2 LVLs ap4 6.5 cm ESV(MOD-sp4) 19.8 ml ESV(sp4-el) 19.7 ml EF(MOD-sp4) 59.6 % EF(sp4-el) 60.6 % LVAd ap2 26.5 cm\S\2 LVLd ap2 8.1 cm EDV(MOD-sp2) 71.5 ml EDV(sp2-el) 73.4 ml LVAs ap2 15.3 cm\S\2 LVLs ap2 6.8 cm ESV(MOD-sp2) 28.3 ml ESV(sp2-el) 29.2 ml EF(MOD-sp2) 60.3 % EF(sp2-el) 60.3 % LVLd %diff 10.3 % EDV(MOD-bp) 62.4 ml LVLs %diff 3.7 % ESV(MOD-bp) 24.1 ml EF(MOD-bp) 61.4 % SV(MOD-sp4) 29.2 ml SI(MOD-sp4) 14.4 ml/m\S\2 SV(MOD-sp2) 43.1 ml SI(MOD-sp2) 21.2 ml/m\S\2 SV(MOD-bp) 38.3 ml SI(MOD-bp) 18.8 ml/m\S\2 SV(sp4-el) 30.4 ml SI(sp4-el) 14.9 ml/m\S\2 SV(sp2-el) 44.3 ml SI(sp2-el) 21.7 ml/m\S\2 Doppler Measurements and Calculations MV E max km 117.0 cm/sec MV A max km 133.7 cm/sec MV E/A 0.88 MV P1/2t max km 115.0 cm/sec MV P1/2t 126.3 msec MVA(P1/2t) 1.7 cm\S\2 MV dec slope 266.7 cm/sec\S\2 MV dec time 0.35 sec Ao V2 max 179.1 cm/sec Ao max PG 12.8 mmHg Ao max PG (full) 1.3 mmHg Ao V2 mean 119.1 cm/sec Ao mean PG 6.5 mmHg Ao V2 VTI 37.2 cm LV V1 max PG 11.6 mmHg LV V1 max 170.0 cm/sec PA V2 max 88.3 cm/sec PA max PG 3.1 mmHg PA acc slope 364.0 cm/sec\S\2 PA acc time 0.19 sec PA pr(Accel) -4.33 mmHg
[2016-09-11] MEDS ORDERED: POTA20TA16 PO (17:50)
--- NOTE | 2016-09-11 17:55 | Discharge Instructions ---
Discharge Instructions Date of Service Sep 11, 2016. Admission Reason for Admission: Chest Pain Discharge Discharge Diagnosis / Problem: chest pain, heart attack ruled out; low potassium due to diuretic use Discharge Goals Goal(s): Learn about illness, Diagnostic testing, Therapeutic intervention Activity Recommendations Activity Limitations: resume your previous activity . Instructions / Follow-Up Instructions / Follow-Up From Dr. Moody: 1. chest pain - * heart attack was ruled out while hospitalized * your echocardiogram showed good function of the aortic valve and the heart function was overall good * your telemetry (heart monitoring) while hospitalized was normal * no new medications were recommended by the cardiology team at this time 2. low potassium - * this was due to your usage of 2 diuretic pills (lasix and chlorthalidone) at home * please INCREASE your potassium pill to TWICE A DAY * NEW prescription called to [facility] in [place] Please have your potassium level rechecked by your family doctor THIS 09/13/[address] Som Amado, cardiology, in 1-2 weeks; please call his office for an appointment Current Hospital Diet Patient's current hospital diet: AHA Diet (Heart Healthy) Discharge Diet Recommended Diet: Low Sodium Diet (2gm Na) Procedures Procedures Performed: echocardiogram - no change from prior echo. aortic valve is functioning well. Pending Studies Studies pending at discharge: no Medical Emergencies . Who to Call and When: Medical Emergencies: If at any time you feel your situation is an emergency, please call 911 immediately. . Non-Emergent Contact Non-Emergency issues call your: Nitrogen Operator Call Non-Emergent contact if: your pain is not controlled, your pain is worsening, your pain is unusual for you, your pain is concerning you, you have any medication questions . . "Provider Documentation" section prepared by Urban Moody. VTE Core Measure Inpt VTE Proph given/why not?: Unfractionated heparin SQ
[2016-09-12] MEDS ORDERED: CHLORTHALIDONE 25 MG TAB PO SCH (09:00)
[2016-09-12] MEDS ORDERED: ATORVASTATIN 40 MG TAB PO SCH (09:00)
--- NOTE | 2016-09-18 06:26 | Discharge Summary ---
Discharge Summary Date of Service Sep 18, 2016. Discharge Summary Admission Date: Sep 11, 2016 at 00:08 Discharge Date: Sep 11, 2016 Discharge Disposition: Home Principal Diagnosis: chest pain, ACS ruled out Problems/Secondary Diagnoses: 1. CAD 2. SLE on chronic prednisone 3. hypokalemia 4. h/o aortic valve replacement with subsequent revision 5. HTN 6. hyperlipidemia Immunizations: Have You Had Influenza Vaccine: Yes Influenza Vaccine Date: Feb 27, 2012 History of Tetanus Vaccine?: Yes History of Pneumococcal: Yes History of Hepatitis B Vaccine: No Procedures: 1. echocardiogram: * -- Conclusions -- * 1. Normal LV size. Mild concentric LVH * 2. Normal LV systolic function. LVEF 60-65%. No regional wall motion abnormalities. * 3. RV not well visualized. Borderline RV dysfunction. * 4. Post TAVR (Corevalve) with normal expected transvalvular gradients. No significant paravalvular leak. * 5. Severe mitral annular calcification. Mild mitral stenosis. Trace mitral regurgitation. * 6. Grade I diastolic dysfunction. * 7. Compared with prior study on 03/02/2016: Well-functioning TAVR is new. 2. renal u/s - normal. Consultations: cardiology - Som Amado MD Medication Reconciliation Changed Medications: Potassium Ext Rel (Klor-Con) 20 Meq Tabcr 20 MEQ PO BID, #60 2 Refills (Changed from: QAM; Refills: ) Continued Medications: Aspirin (Aspirin Ec) 81 Mg Tab 81 MG PO QAM Chlorthalidone (Hygroton) 25 Mg Tab 25 MG PO QAM Clopidogrel (Plavix) 75 Mg Tab 75 MG PO QAM, TAB Furosemide (Lasix) 40 Mg Tab 40 MG PO QAM Magnesium Oxide (Mag-Ox) 400 Mg Tab 400 MG PO QAM, #30 Methocarbamol (Robaxin) 500 Mg Tab 500 MG PO TID, #270 Metoprolol Succinate (Metoprolol Succinate ER) 25 Mg Tabcr 25 MG PO QAM Prednisone (Prednisone) 5 Mg Tab 5 MG PO QAM Referrals At Discharge Follow up Referrals: [facility] Referral - Within 1-2 Weeks with Som Amado MD Discharge Exam Physical Exam: General Appearance: no apparent distress ENT: pharynx normal Neck: no JVD Respiratory/Chest: lungs clear, no respiratory distress, no accessory muscle use Cardiovascular: regular rate, rhythm, no gallop, + systolic murmur (2/6 RUSB and apex) Abdomen / GI: normal bowel sounds, non tender, soft, no organomegaly Extremities: no pedal edema, + pertinent finding (no joint synovitis ) Neurologic/Psychiatric: alert, oriented x 3 Skin: + pertinent finding (no butterfly rash on face) Hospital Course HISTORY OF PRESENT ILLNESS: This is a 56-year-old male with a medical history of diffuse severe CAD, SLE, aortic valve replacement with revision. The patient developed central chest pain earlier in the day which radiated to his left arm and was followed by a generalized headache. He denies any nausea, vomiting, diaphoresis, lightheadedness or fevers. He denies any shortness of breath. On arrival to the hospital, he was administered several doses of morphine and NTG which eventually served to relieve his chest pain. Initial EKG is unchanged, initial troponin is negative. The patient did have cardiac catheterization in 02/2016 which showed diffuse severe [place] artery disease. He also had severe aortic stenosis of a bioprosthesis at that time. In 05/2016 he had a CoreValve revision of the bioprosthesis. HOSPITAL COURSE: Following admission the patient had no further chest pain. Cardiac enzymes remained negative x 3 sets. Telemetry showed no dysrhythmia. He was seen in consult by his primary sales and service engineer, Dr. Som Amado, who recommended echocardiogram. Echo results are shown above. Specifically his aortic valve replacement was functioning well and he had no pericardial disease or signs of pericarditis. The patient's potassium was quite low at presentation due to double diuretic usage at home. He was advised to double his potassium supplementation at home and have a repeat K level within 3-5 days after discharge with his PCP. Exact etiology of his chest pain was not clear but felt NOT to be due to his CAD. Total Time Spent: Greater than 30 minutes This includes examination of the patient, discharge planning, medication reconciliation, and communication with other providers. Discharge Instructions Please refer to the electronic Patient Visit Report (Discharge Instructions) for additional information. Follow-Up see Dr. Som Amado, [facility], in 1-2 weeks Additional Copies To Som Amado MD; Sin Boudreaux M.D.
== END 2016-09-11 18:11 | disposition home or self-care (01) ==
LOC: ENRESERVTM → ENRESERVDT → EDBD 20:47 → C.EDC 20:48 → C.2T 09-11 00:08
PROVIDERS: ADMIT Internal Medicine; ATTEND Internal Medicine
DX: R07.9 Chest pain, unspecified (principal); E87.6 Hypokalemia; I25.10 Atherosclerotic heart disease of native coronary artery without angina pectoris; M32.9 Systemic lupus erythematosus, unspecified; I10 Essential (primary) hypertension; E78.5 Hyperlipidemia, unspecified; Z87.891 Personal history of nicotine dependence; Z88.5 Allergy status to narcotic agent; Z95.2 Presence of prosthetic heart valve; Z79.82 Long term (current) use of aspirin; Z79.52 Long term (current) use of systemic steroids; Z95.1 Presence of aortocoronary bypass graft; Z90.49 Acquired absence of other specified parts of digestive tract; Z82.49 Family history of ischemic heart disease and other diseases of the circulatory system

== ENCOUNTER → 2016-09-24 | Outpatient (CLI) | payer OTHER ==
[~2016-09-24] MED LIST changes: -ATOR-22 PO; -FOLI1TAB7 PO; +MAGN400T6 PO; +METH500T37 PO; -THIA100T13 PO
== END | disposition home or self-care (01) ==
LOC: C.RDSM 12:44
PROVIDERS: ATTEND Family Medicine Sports Medicine
DX: M25.512 Pain in left shoulder (principal)

== ENCOUNTER → 2016-11-29 | Outpatient (CLI) | payer OTHER ==
--- NOTE | 2016-11-29 14:29 | DIAGNOSTIC IMAGING REPORT ---
CHEST 2 VIEWS ROUTINE CLINICAL HISTORY: Short of breath, chest pain and cough. COMPARISON STUDY: Chest radiograph September 10, 2016. FINDINGS: There are median sternotomy wires, mediastinal surgical clips and a valvular prosthesis. Moderate cardiomegaly is unchanged. There is no evidence of pulmonary edema. No consolidation is identified to suggest pneumonia. Left basilar opacity is unchanged and suggests atelectasis. There is no pneumothorax or pleural effusion. IMPRESSION: No acute cardiopulmonary findings. No change in appearance of the chest. Electronically signed by: Jevon Bush M.D. 11/29/2016 2:28 PM Dictated Date/Time: 11/29/2016 2:26 PM
== END | disposition home or self-care (01) ==
LOC: C.RAD1850 13:06
PROVIDERS: ATTEND Nurse Practitioner Family
DX: R06.02 Shortness of breath (principal); R07.89 Other chest pain; R05 Cough

== ENCOUNTER → 2016-12-13 | Outpatient (CLI) | payer OTHER ==
--- NOTE | 2016-12-13 14:11 | DIAGNOSTIC IMAGING REPORT ---
CHEST 2 VIEWS ROUTINE CLINICAL HISTORY: CHEST PAIN dyspnea COMPARISON STUDY: 11/29/2016 FINDINGS: Prior median sternotomy. Chronic blunting left lateral gastric angle. Lungs otherwise appear clear. Chronic interstitial interstitial change retrocardiac region. IMPRESSION: Chronic change. No acute process. Electronically signed by: Christophe Carroll M.D. 12/13/2016 2:10 PM Dictated Date/Time: 12/13/2016 2:10 PM
== END | disposition home or self-care (01) ==
LOC: C.RAD1850 14:00
PROVIDERS: ATTEND Family Medicine
DX: R07.9 Chest pain, unspecified (principal)